=== PATIENT | male | born 1975 ===

== ENCOUNTER 2025-06-09 02:39 | Day surgery (SDC) | payer OTHER, SELFPAY ==
[2025-06-09] VITALS (14 sets, daily range): BP systolic 105–149; BP diastolic 67–96; PULSE 94–105; RESP 18–21; TEMP 36.3–36.6; O2SAT 95–100
--- NOTE | 2025-06-09 02:50 | ED_ITS ---
HPI - General Adult General Chief complaint: Unspecified Stated complaint: food bolus, n/v Time Seen by Provider: 06/09/25 02:44 History of Present Illness HPI narrative: This is a 49-year-old male with no known past medical history who presents the ED for possible food impaction. Patient states that this evening he was eating steak and believes he got a piece stuck at about 8:00 p.m. he has tried drinking water but has had this but everything up including his saliva. Denies shortness of breath, chest pain. Reports that it feels like it is stuck just below his Riky's apple. He has had this happen 1 time before but was able to make it passed after couple hours on his own. Related Data Home Medications ?Medication ?Instructions ?Recorded ?Confirmed ?Last Taken ?Type acetaminophen 300 mg-codeine 15 mg 1 tablet PO BID PRN 07/22/21 08/02/21 Unknown History tablet Allergies Allergy/AdvReac Type Severity Reaction Status Date / Time No Known Allergies Allergy Mild Verified 07/22/21 09:52 Review of Systems Review of Systems: Gen.: Denies fevers or chills Eyes: Denies eye pain or visual change ENT: Denies congestion Respiratory: Denies shortness of breath or cough CV: Denies chest pain or palpitations GI: As per HPI denies burning, urgency, frequency or hematuria Musculoskeletal: Denies back pain or muscle pain Neuro: Denies numbness, tingling, weakness or focal weakness Skin: Denies rash Except as documented, all other systems reviewed and negative [facility] Surgical History Surgical History H/O eye surgery Family History Family History Father Hypertension Mother Melanoma Other Cancer Social History Social History Smoking status: Current every day smoker Tobacco type: cigarettes Alcohol intake: current Living arrangements: with family Exam Narrative: APPEARANCE: No acute distress, nontoxic, resting in bed EYES: EOMI HEENT: Normocephalic, atraumatic, OMM. Oropharynx patent. RESPIRATORY: No respiratory distress Clear to auscultation bilaterally with no rhonchi wheezing or rales. CARDIOVASCULAR: Regular rate and rhythm without murmurs rubs or gallops. ABDOMINAL: Soft, nontender, nondistended, no rebound or guarding MUSCULOSKELETAl: Moves all extremities. No clubbing, cyanosis or edema. NEURO: Awake and alert. Following commands, speech normal, no focal deficits SKIN:: Warm, dry. No rashes lesions or abrasions PSYCHIATRIC: Normal affect/mood, Course Vital Signs Vital signs: Vital Signs Temperature 97.3 F L 06/09/25 02:40 Pulse Rate 94 06/09/25 02:40 Respiratory Rate 18 06/09/25 02:40 Blood Pressure 127/81 06/09/25 02:40 Pulse Oximetry 100 06/09/25 02:40 Oxygen Delivery Room Air 06/09/25 02:40 Temperature 97.3 F L 06/09/25 02:40 Pulse Rate 94 06/09/25 02:40 Respiratory Rate 18 06/09/25 02:40 Blood Pressure 117/87 06/09/25 05:00 Pulse Oximetry 97 06/09/25 05:00 Oxygen Delivery Room Air 06/09/25 02:40 Medical Decision Making MDM Narrative Medical decision making narrative: 41-year-old male presenting for possible food impaction. On initial evaluation, patient was in mild distress, afebrile, hemodynamically stable. He did have a bucket in which she was spitting into. Heart and lungs clear. Abdomen soft nontender. Oropharynx clear. Patient was given a dose of glucagon and was unable to pass the food bolus. I discussed the case with Dr. Gusman, GI, will come in to do an EGD. Differential Diagnosis Differential Diagnosis: Food impaction, ingested foreign body Vital Signs Vital Signs: Vital Signs Temperature 97.3 F L 06/09/25 02:40 Pulse Rate 94 06/09/25 02:40 Respiratory Rate 18 06/09/25 02:40 Blood Pressure 127/81 06/09/25 02:40 Pulse Oximetry 100 06/09/25 02:40 Oxygen Delivery Room Air 06/09/25 02:40 Temperature 97.3 F L 06/09/25 02:40 Pulse Rate 94 06/09/25 02:40 Respiratory Rate 18 06/09/25 02:40 Blood Pressure 117/87 06/09/25 05:00 Pulse Oximetry 97 06/09/25 05:00 Oxygen Delivery Room Air 06/09/25 02:40 Discharge Plan Discharge Clinical Impression: Food impaction of esophagus Qualifiers: Encounter type: initial encounter Qualified Code(s): T18.128A - Food in esophagus causing other injury, initial encounter; W44.F3XA - Food entering into or through a natural orifice, initial encounter Patient Disposition: Still a Patient Condition: Stable Patient Language: Telugu Prescriptions: No Action acetaminophen-codeine 300-15 mg tablet 1 tablet PO BID PRN Follow-up/Referrals: PHYSICIAN,BELLPERSON [Primary Care Provider, Internal Medicine]
[2025-06-09] MEDS: GLUCAGON FOR INJ 1 MG VIAL IV PUSH (02:55)
[2025-06-09] MEDS: ONDANSETRON INJ 4 MG/2 ML VIAL IV PUSH (02:56)
[2025-06-09] MEDS: diazePAM INJ (*CRX) 10 MG/2 ML SYRINGE 5 MG IV PUSH (03:26)
[2025-06-09] MEDS: KETOROLAC 30 MG/ML VIAL (*BKC) IV PUSH (03:26)
--- OUTSIDE RECORDS SUMMARY | 2025-06-09 07:13 | XMS_ITS | Clinical Summary ---
Author [place] [facility] [place] [address] [facility] Address [address] [place] [address] Care Team Providers Care Tire Molder Name Role Phone Referral, Self Primary Care Provider Unavailabl e Allergies No known active allergies Medications albuterol HFA (ProAir HFA) 90 mcg/actuation inhaler Inhale 2 puffs every 4 (four) hours as needed for wheezing or shortness of breath 1 each 4 Active albuterol HFA (PROVENTIL HFA,VENTOLIN HFA,PROAIR HFA) 90 mcg/actuation inhaler Inhale 2 puffs every 6 (six) hours as needed for wheezing 1 each 4 08/10/[address] (PROTONIX) 40 mg EC tabletIndicatio ns:Heartburn Take 1 tablet (40 mg total) by mouth daily before breakfast 30 minutes before meal 30 tablet 5 09/05/19 26 Active SUMAtriptan (IMITREX) 100 mg tabletIndicatio ns:Migraine Take 1 tablet with onset of migraine, repeat 2 hours later if headache persists. 9 tablet 5 Active ibuprofen (ADVIL,MOTRIN) 800 mg tablet Take 1 tablet (800 mg total) by mouth 3 (three) times a day 30 tablet 5 Active tiZANidine (ZANAFLEX) 4 mg tablet Take 1 tablet (4 mg total) by mouth nightly as needed for muscle spasms for up to 14 days 14 tablet 5 Active Active Problems No known active problems Social History Tobacco Use Types Packs/Day Years Used Date Smoking Tobacco: Never Assessed Personal Safety Answer Date Recorded Getting School Help Needed Not on file 08/06 Sex and Gender Information Value Date Recorded Sex Assigned at Not on file Legal Sex Male 7:34 PM [employer] Gender Identity Male 05/21/2023 6:57 PM CDT Sexual Orientation Straight 05/21/2023 6: 57 PM CDT Obstetrics History Plan of Treatment Health Maintenance Due Date Last Done Comments Colon Cancer Screening-Colonoscopy 1975 Depression Screening 1975 Hepatitis C Screening 1976 DTaP/Tdap/Td Vaccine (1 - Tdap) 1987 Hepatitis B Screening 1994 Regular Well Visit/Exam 18-64 1994 Covid-19 Vaccine (3 - 2024-2 6 season) 2025 08/31/2021, 07/16/2021 Influenza Vaccine (#1) 2025 06/12/2021 Pneumococcal vaccine <65 Aged Out No longer eligible based on patient's age to complete this topic Insurance [employer] [facility] Care Teams Tire Molder Relationship Specialty Start Date End Date Referral, Self PCP - General 11/03/24
--- NOTE | 2025-06-09 07:27 | P.PNAN_ITS ---
Anes - Initial Pre Proc Eval Procedure: Operation Date: 06/09/25 07:30 Proposed Procedures p Esophagogastroduodenoscopy - Abiel Galeana MD Date/Time: 06/09/25 07:27 Surgeon: Abiel Galeana MD Pre Op Diagnosis: food bolus, n/v Patient Data Age: 49 Gender: M Height: 1.73 m Weight: 95.4 kg Last Vital Signs Temp 97.3 F L 06/09/25 02:40 Pulse 100 06/09/25 07:23 Resp 20 06/09/25 07:23 BP 135/92 H 06/09/25 07:23 Pulse Ox 96 06/09/25 07:23 O2 Del Method Room Air 06/09/25 02:40 Allergies Allergy/AdvReac Type Severity Reaction Status Date / Time No Known Allergies Allergy Mild Verified 06/09/25 06:11 Home Medications ?Medication ?Instructions ?Recorded ?Confirmed ?Type acetaminophen 300 mg-codeine 15 mg 1 tablet PO BID PRN 07/22/21 08/02/21 History tablet Patient hx anesthesia problems: none Family hx anesthesia problems: none Results Review: All pre-operative results and documents have been reviewed as part of the pre- operative evaluation. [facility] Surgical History Surgical History H/O eye surgery Family History Family History Father Hypertension Mother Melanoma Other Cancer Social History Social History Smoking status: Current every day smoker Tobacco type: cigarettes Alcohol intake: current Living arrangements: with family Anes - Eval Final PreProcedure Day of Procedure 06/09/25 07:27 Patient weight: normal Heart: regular rate and rhythm Lungs: clear to auscultation Airway: Mallampati scale Neurological: alert and oriented Last oral intake: >/= 8 hours ASA classification: II Emergent: yes Anesthetic plan: proceed Results Review: All pre-operative results and documents have been reviewed as part of the pre- operative evaluation. Informed Consent: The patient's anesthetic plan and its attendant risks and benefits were discussed with the patient/family/POA. Questions were solicited and answers provided to the satisfaction of the patient/family/POA.
[2025-06-09] MEDS: LACTATED RINGERS 1,000 ML 150 ML IV CONT (07:30)
--- NOTE | 2025-06-09 07:36 | PM.HPGS ---
History of Present Illness History of Present Illness Consent: Risks, benefits, and alternatives have been discussed and questions answered. Patient agrees to proceed with procedure. Chief complaint: food bolus, n/v Narrative: Pedrito Duarte is a 49 year old male here for food bolus after had steak, never had egd Review of Systems Review of Systems: All systems reviewed & are unremarkable except as noted in HPI and below PMFSH Surgical History Surgical History H/O eye surgery Family History Family History Father Hypertension Mother Melanoma Other Cancer Social History Social History Smoking status: Current every day smoker Tobacco type: cigarettes Alcohol intake: current Living arrangements: with family Meds Home Medications and Allergies Home Medications ?Medication ?Instructions ?Recorded ?Confirmed ?Type acetaminophen 300 mg-codeine 15 mg 1 tablet PO BID PRN 07/22/21 08/02/21 History tablet Allergies Allergy/AdvReac Type Severity Reaction Status Date / Time No Known Allergies Allergy Mild Verified 06/09/25 06:11 Vital Signs Vital Signs - 24 hr 06/09/25 02:40 06/09/25 03:36 06/09/25 04:01 Temperature 97.3 F L Pulse Rate 94 Respiratory Rate 18 Blood Pressure 127/81 149/96 H 125/69 Pulse Oximetry 100 95 Oxygen Delivery Room Air 06/09/25 04:30 06/09/25 05:00 06/09/25 05:30 Temperature Pulse Rate Respiratory Rate Blood Pressure 127/77 117/87 132/83 Pulse Oximetry 100 97 97 Oxygen Delivery 06/09/25 06:00 06/09/25 06:30 06/09/25 07:00 Temperature Pulse Rate Respiratory Rate Blood Pressure 116/87 140/74 114/84 Pulse Oximetry 99 98 99 Oxygen Delivery 06/09/25 07:23 Temperature Pulse Rate 100 Respiratory Rate 20 Blood Pressure 135/92 H Pulse Oximetry 96 Oxygen Delivery Exam Const: General: comfortable and no acute distress HENMT: Face/Nose/Sinus: Normal nares present Teeth and gingiva: other (he does not have teeth) Eyes: General: appearance normal, both eyes and all related structures Neck: Neck: no JVD Resp: Auscultation: clear to auscultation bilaterally Cardio: Rate: regular rate Rhythm: regular rhythm GI: Inspection: non-distended GI Palp: Yes Soft to palpation Skin: General skin exam: normal color Neuro: General: gait normal Speech: normal speech Extrem: General: normal to inspection Psych: Mental Status: mental status grossly normal Assessment and Plan Assessment and plan (1) Food impaction of esophagus: Qualifiers: Encounter type: initial encounter Qualified Code(s): T18.128A - Food in esophagus causing other injury, initial encounter; W44.F3XA - Food entering into or through a natural orifice, initial encounter Code(s): T18.128A - Food in esophagus causing other injury, initial encounter; W44.F3XA - Food entering into or through a natural orifice, initial encounter Status: Acute Assessment and Plan: will do urgent egd
[2025-06-09] MEDS: BENZOCAINE (*SP) 60 ML SPRAY CAN (HURRICAINE) 1 SPRAY MUCOUS MEM (07:40)
--- NOTE | 2025-06-09 07:46 | S_PTH ---
PATIENT: Pedrito Duarte LOC: [facility] U#:[id number] AGE/SX: 49/M ROOM: RE06/09/[address]: Abiel Galeana MD : 1975 BED: DIS: 06/09/2025 SPEC #: [id number] RECD: 06/10/25 07:15 STATUS: LYNNE REQ #: [id number] BERNARDO: 06/09/25 07:[address]: Abiel Galeana DEPT: [facility] Surgical RECD BY: La Nena Barajas ENTERED: 06/10/25 07:15 SP TYPE: Surgical OTHR DR: Олег Sandoval MD CLIENT SUPPORT COORDINATOR PHYSICIAN Tissues: A - Gastric Biopsy B - Esophageal Biopsy Procedures: Hematoxylin and Eosin Stain Gross and Microscopic Level 4 H.Pylori
== END 2025-06-09 08:15 | disposition home or self-care (01) ==
LOC: ANHED 06:08 → ANHSURGERY 07:11
PROVIDERS: Emergency Provider Student in an Organized Health Care Education/Training Program; Visit Provider Internal Medicine Gastroenterology
PROC: 0DJ08ZZ Inspection of Upper Intestinal Tract, Via Natural or Artificial Opening Endoscopic (ICD-10-PCS; CPT 43239; principal; 2025-06-09 07:30)
DX: T18.128A Food in esophagus causing other injury, initial encounter (principal); W44.F3XA Food entering into or through a natural orifice, initial encounter; K21.00 Gastro-esophageal reflux disease with esophagitis, without bleeding; K29.50 Unspecified chronic gastritis without bleeding; K44.9 Diaphragmatic hernia without obstruction or gangrene; K29.80 Duodenitis without bleeding; F17.210 Nicotine dependence, cigarettes, uncomplicated; Z98.890 Other specified postprocedural states; Z80.8 Family history of malignant neoplasm of other organs or systems
CPT/HCPCS: 43239; 88305; 88342; 96374; 96375; 99285; A9270; J1610; J1885; J2003; J2405; J2704; J3360; J7120